=== PATIENT | female | born 1955 ===

== ENCOUNTER 2023-05-01 06:03 | Day surgery (SDC) | payer OTHER ==
[~2023-05-01] VITALS: Ht 154.9 cm; Wt 82.1 kg
[~2023-05-01 06:03] MED LIST: ACID REDUCER20 M1 PO; AIRDUO RESPICL1 EAC2 IH; AZELASTINE137 MCG/0. NASAL; GLIPIZIDE XL10 MG PO; GRALISE600 MG PO; LEVO-T25 MCG PO; LOSARTAN-HCTZ1 EACH PO; METFORMIN HCL750 MG PO; METOPROLOL SUCC25 MG PO; MIRAPEX0.5 MG PO; MONTELUKAST SOD10 MG PO; PROAIR RESPICL90 MCG IH; RESTORIL15 MG PO; XARELTO20 MG PO; ZETIA10 MG PO; ZOCOR40 MG PO
[2023-05-01] MEDS ORDERED: CEFAZOLIN SODIUM 1,000 MG VIAL ONE (08:00)
[2023-05-01] MEDS ORDERED: BUPIVACAINE HCL/PF 0.5% 30ML ML ONE (10:39)
[2023-05-01] MEDS ORDERED: LIDOCAINE HCL 1%/Epi 20ML VIAL IJ ONE ×2 (10:39→11:00)
[2023-05-01] MEDS ORDERED: BUPIVACAINE HCL/PF 0.25% 30ML VIAL InF ONE (11:00)
[2023-05-01] MEDS ORDERED: CEFAZOLIN SODIUM 1,000 MG VIAL IV ONE (11:00)
== END 2023-05-01 14:30 | disposition home or self-care (01) ==
LOC: CIR.AMB 06:03
PROVIDERS: ATTEND Colon & Rectal Surgery
DX: R15.9 Full incontinence of feces (principal); Z91.013 Allergy to seafood; Z20.822 Contact with and (suspected) exposure to COVID-19
CPT/HCPCS: 64581; 95971; C1778

== ENCOUNTER 2023-05-12 05:50 | Day surgery (SDC) | payer OTHER ==
[2023-05-09 11:57] LABS: HEMOGLOBIN 11.7 g/dL (12.0-15.00); MEAN CELL VOLUME 86.1 fL (80.00-100.00); MEAN CORPUSCULAR HEMOGLOBIN 28.7 pg (27.00-32.0); MEAN CORPUSCULAR HGB CONC 33.3 g/dl (32.0-36.0); PLATELET COUNT 198 K/uL (150-450); RED BLOOD COUNT 4.07 M/uL (4.00-6.00); RED CELL DISTRIBUTION WIDTH 15.2 % (11.5-14.5)
[2023-05-09 12:30] LABS: ALBUMIN 3.4 gm/dL (3.4-5.0); BILIRUBIN TOTAL 0.23 mg/dL (0.3-1.2); CALCIUM 10.3 mg/dL (8.5-10.1); CREATININE SERUM 0.93 mg/dL (0.55-1.02); GFR 59.78; GLOBULINA 3.9 G/DL (2.4-3.5); POTASSIUM 4.16 mEq/L (3.5-5.1); TOTAL PROTEIN 7.3 gm/dL (6.4-8.2)
[2023-05-09 12:36] LABS: INR 1.05; PARTIAL THROMBOPLASTIN TIME 27.6 SECONDS (22.0-34.0)
[2023-05-12] MEDS ORDERED: METRONIDAZOLE/SODIUM CHLORIDE 500 MG/100 ML PIGGYBACK IV ONE ×2 (07:26→09:30)
[2023-05-12] MEDS ORDERED: CEFTRIAXONE SODIUM 2,000 MG VIAL ONE (07:26)
[2023-05-12] MEDS ORDERED: CEFTRIAXONE SODIUM 2,000 MG VIAL IV ONE (09:30)
== END 2023-05-12 12:35 | disposition home or self-care (01) ==
LOC: CIR.AMB 05:50
PROVIDERS: ATTEND Colon & Rectal Surgery
DX: R15.9 Full incontinence of feces (principal); Z91.013 Allergy to seafood
CPT/HCPCS: 64590; 95971; C1767